=== PATIENT | male | born 1950 | race Caucasian/White ===

== ENCOUNTER 2021-05-05 11:22 | Inpatient (IN) | payer OTHER, MEDICARE ==
[~2021-05-05] VITALS: Ht 177.8 cm; Wt 96.8 kg
[~2021-05-05 11:22] MED LIST: METF10002 PO; PRAV40TA2 PO; RAMI2.5C49 PO; VALS1TAB12 PO; VERA240C2 PO; potassium PO
--- NOTE | 2021-05-05 11:25 | NUR ---
Report received from EMS and care assumed. 12 lead EKG being completed and pt placed on full bedside monitor. dumpling machine operator completed and pt placed in Covid isolation for s/s Covid x1 week with negative test last but increased symptoms. Pt states he has not been able to sleep due to SOB x4 days and body aches are reported as 10/10 discomfort with highest fever at home of 103F yesterday.
--- NOTE | 2021-05-05 11:35 | NUR ---
Urinal provided to pt for urgent needs and sample obtained for possible future orders after being seen by MD. Awaiting MD assessment.
--- NOTE | 2021-05-05 12:56 | NUR ---
Pt awaiting MD assessment. VSS.
[2021-05-05] MEDS ORDERED: MORPHINE SULFATE 4 MG/ML, 1ML IVPush PRN (13:00)
[2021-05-05] MEDS ORDERED: KETOROLAC 30 MG/1 ML IV ONE (13:00)
[2021-05-05] MEDS ORDERED: SODIUM CHLORIDE FLUSH 10ML SYR IVF ONE (13:00)
--- NOTE | 2021-05-05 13:00 | NUR ---
MD at bedside for exam. Med rec completed to best of pt's ability. Pills present and looked up ones he could not recall names of.
[2021-05-05] MEDS ORDERED: METF500T17 PO (13:07)
[2021-05-05] MEDS ORDERED: KETOROLAC 30 MG/1 ML ONE (13:12)
[2021-05-05] MEDS ORDERED: MORPHINE SULFATE 4 MG/ML, 1ML ONE (13:12)
--- NOTE | 2021-05-05 13:20 | NUR ---
IV attempts x4 unsuccessful. All sites covered with gauze dsgs and second RN called to bedside to attempt IV start
--- NOTE | 2021-05-05 13:42 | NUR ---
Pt medicated for pain and PCXR being completed at this time.
[2021-05-05 13:47] LABS: BASOPHILS % (AUTO) 0 % (0-1); EOSINOPHILS % (AUTO) 0 % (1-7); LYMPHOCYTES % (AUTO) 2 % (22-44); MEAN CORPUSCULAR HEMOGLOBIN 32.3 pg (27.5-34.5); MEAN CORPUSCULAR HGB CONC 34.5 g/dL (33.2-36.2); MEAN PLATELET VOLUME 10.1 fL (7.4-10.4); MONOCYTES % (AUTO) 3 % (2-9); NEUTROPHILS % (AUTO) 96 % (42-75); PLATELET COUNT 222 x10^3/uL (130-400); RED BLOOD COUNT 5.08 x10^6/uL (4.38-5.82); RED CELL DISTRIBUTION WIDTH 14.6 % (9.4-14.8)
[2021-05-05 13:56] LABS: ALANINE AMINOTRANSFERASE 70 U/L (12-78); ALBUMIN 2.1 g/dL (3.4-5.0); ANION GAP 11 mmol/L (5-15); CALCIUM 8.8 mg/dL (8.5-10.1); CHLORIDE 98 mmol/L (98-107); CREATININE 4.07 mg/dL (0.7-1.3)
[2021-05-05 14:04] LABS: ALKALINE PHOSPHATASE 86 U/L (45-117); BILIRUBIN,TOTAL 0.9 mg/dL (0.2-1.0); C-REACTIVE PROTEIN, QUANT > 19.00 mg/dL (0.02-0.49); TOTAL PROTEIN 7.3 g/dL (6.4-8.2); TROPONIN I < 0.015 ng/mL (0.000-0.045)
--- NOTE | 2021-05-05 14:17 | NUR ---
notified of Sepsis Protocol reached per Sepsis flowsheet with Creatinine and Lactic Acid both elevated with pneumon per CXR and elevated WBC's with elevated RR. SBP>100mmHg on all VS, but states she will be ordering 30mL/kg bolus now along with second set of BC and other orders. Pt notified.
[2021-05-05] MEDS ORDERED: ACETAMINOPHEN 500 MG TABLET ONE (14:21)
[2021-05-05] MEDS ORDERED: AZITHROMYCIN 500 MG in SODIUM CHLORIDE 0.9% 250 ML IV STA (14:27)
[2021-05-05] MEDS ORDERED: SODIUM CHLORIDE 0.9% 1,000ML IVBOLUS ONE (14:30)
[2021-05-05] MEDS ORDERED: CEFTRIAXONE 1,000 MG in DEXTROSE 5% 50 ML IVPB ONE (14:30)
[2021-05-05] MEDS ORDERED: ACETAMINOPHEN 500 MG TABLET PO ONE (14:30)
--- NOTE | 2021-05-05 14:35 | NUR ---
2500ML bolus running. Lab at bedside for second set of BC. APAP given with temp recheck 99.8F prior to admin. MD at bedside for pt update and covid swab of pt.
--- NOTE | 2021-05-05 14:40 | NUR ---
First of 2 abx IVPB started with second BC draw completed.
--- NOTE | 2021-05-05 14:47 | NUR ---
Urinal emptied of 300mL dark yellow uop.
--- NOTE | 2021-05-05 15:37 | NUR ---
Food tray not yet arrived. Second IVPB abx started at this time and second liter of 2500mL bolus started.
--- NOTE | 2021-05-05 16:11 | NUR ---
Dinner tray arrived and brought to pt room. ABX [facility] done with IVF running well for bolus. Admitting MD at bedside for exam. Med/Tele request placed and awaiting room assignment.
--- NOTE | 2021-05-05 16:43 | NUR ---
Pt states he ate only a small amount of food provided, but he feels better after having eaten something. Pt states pain is currently still resolved. Bag 2 of 3 nearly completed with VS as documented.
--- NOTE | 2021-05-05 16:46 | NUR ---
Bag 3 of 3 started at wide open rate for 500mL more of total 2500mL bolus as ordered. Pt aware of need for UA sample as soon as able.
--- NOTE | 2021-05-05 16:55 | NUR ---
Report given to [facility] for meal break and care transferred.
--- NOTE | 2021-05-05 17:25 | NUR ---
Report received and care reassumed. Pt found slumped down in bed with chin to chest and sleeping and noted sats 88% on 2L/min. Pt repositioned and O2 increased to 3L/min with reassessed sats at 93%.
--- NOTE | 2021-05-05 17:37 | NUR ---
Report called to [facility] and pt readied for tranfer to floor.
--- NOTE | 2021-05-05 17:39 | NUR ---
Griselda RN on floor, aware of sepsis protocol started and need for UA sample to be sent to lab.
--- NOTE | 2021-05-05 17:45 | NUR ---
Repeat VS assessed as per sepsis protocol after fluid bolus completion. Awaiting transport staff to take pt to floor.
[2021-05-05] MEDS ORDERED: hydrALAzine 20 MG/ML, 1ML IVPush PRN (18:30)
[2021-05-05] MEDS ORDERED: DEXTROSE 4 GM TAB.CHEW PO PRN (18:30)
[2021-05-05] MEDS ORDERED: DEXTROSE 50%, 50ML SYRINGE IVPush PRN (18:30)
[2021-05-05] MEDS ORDERED: POLYETHYLENE GLYCOL 17 GM PACKET PO PRN (18:30)
[2021-05-05] MEDS ORDERED: GLUCAGON 1 MG IM PRN (18:30)
[2021-05-05] MEDS ORDERED: ACETAMINOPHEN 325 MG TABLET PO PRN (18:30)
[2021-05-05] MEDS ORDERED: ONDANSETRON 2MG/ML, 2ML IVPush PRN (18:30)
[2021-05-05 18:43] VITALS: BP 109/66
[2021-05-05 19:25] LABS: MICROSCOPIC INDICATED
[2021-05-05] MEDS: HEPARIN 5,000 UNITS/ML, 1ML SQ SCH (20:55)
[2021-05-05] MEDS: SODIUM CHLORIDE 0.9% 1,000 ML IV SCH (20:56)
[2021-05-05] MEDS: SODIUM CHLORIDE FLUSH 10ML SYR IVF SCH (20:56)
[2021-05-05] MEDS: INSULIN LISPRO 100 UNITS/ML, PEN SQ-INSULIN SCH (20:57)
[2021-05-06 02:16] VITALS: BP 128/81
[2021-05-06] MEDS: HEPARIN 5,000 UNITS/ML, 1ML SQ SCH ×3 (05:11→20:47)
[2021-05-06 06:23] LABS: BASOPHILS % (AUTO) 0 % (0-1); EOSINOPHILS % (AUTO) 0 % (1-7); LYMPHOCYTES % (AUTO) 1 % (22-44); MEAN CORPUSCULAR HEMOGLOBIN 31.7 pg (27.5-34.5); MEAN PLATELET VOLUME 9.7 fL (7.4-10.4); MONOCYTES % (AUTO) 2 % (2-9); NEUTROPHILS % (AUTO) 96 % (42-75); PLATELET COUNT 205 x10^3/uL (130-400); RED BLOOD COUNT 4.79 x10^6/uL (4.38-5.82)
[2021-05-06 06:33] LABS: D-DIMER 3.21 ug/mlFEU (0.00-0.52); INTERNATIONAL NORMALIZED RATIO 1.12 (0.93-1.1); PROTHROMBIN TIME 11.9 Seconds (9.6-11.5)
[2021-05-06] MEDS: SODIUM CHLORIDE 0.9% 1,000 ML IV SCH ×2 (06:34→16:14)
[2021-05-06 08:22] VITALS: BP 128/78
[2021-05-06] MEDS: INSULIN LISPRO 100 UNITS/ML, PEN SQ-INSULIN SCH ×4 (08:23→20:52)
[2021-05-06] MEDS: SENNA/DOCUSATE TABLET PO SCH (09:28)
[2021-05-06] MEDS: OXYcodone/APAP 5/325MG TABLET PO PRN ×2 (09:35→20:50)
[2021-05-06] MEDS: SODIUM CHLORIDE FLUSH 10ML SYR IVF SCH ×2 (09:35→20:53)
[2021-05-06 09:52] LABS: ALANINE AMINOTRANSFERASE 55 U/L (12-78); ALBUMIN 1.7 g/dL (3.4-5.0); ANION GAP 11 mmol/L (5-15); CALCIUM 7.6 mg/dL (8.5-10.1); CHLORIDE 106 mmol/L (98-107); CREATININE 3.41 mg/dL (0.7-1.3)
[2021-05-06 09:54] LABS: ALKALINE PHOSPHATASE 77 U/L (45-117); BILIRUBIN,TOTAL 0.5 mg/dL (0.2-1.0); TOTAL PROTEIN 5.9 g/dL (6.4-8.2)
[2021-05-06] MEDS: CEFTRIAXONE 2 GM in DEXTROSE 5% 50 ML IVPB SCH (14:49)
[2021-05-06] MEDS: AZITHROMYCIN 500 MG in SODIUM CHLORIDE 0.9% 250 ML IV SCH (16:14)
[2021-05-06 16:23] VITALS: BP 135/60
[2021-05-06 19:25] VITALS: BP 118/66
[2021-05-06 23:06] VITALS: BP 116/70
[2021-05-07] MEDS: SODIUM CHLORIDE 0.9% 1,000 ML IV SCH (06:01)
[2021-05-07] MEDS: HEPARIN 5,000 UNITS/ML, 1ML SQ SCH ×3 (06:01→21:00)
[2021-05-07 06:30] LABS: CHLORIDE 107 mmol/L (98-107)
[2021-05-07 06:38] LABS: ANION GAP 8 mmol/L (5-15); CALCIUM 7.6 mg/dL (8.5-10.1)
[2021-05-07 06:44] LABS: MEAN CORPUSCULAR HEMOGLOBIN 31.8 pg (27.5-34.5); MEAN CORPUSCULAR HGB CONC 34.1 g/dL (33.2-36.2); MEAN PLATELET VOLUME 10.1 fL (7.4-10.4); PLATELET COUNT 203 x10^3/uL (130-400); RED BLOOD COUNT 4.31 x10^6/uL (4.38-5.82)
[2021-05-07 07:00] LABS: <RBC MORPHOLOGY> NORMAL; BAND#(MANUAL) 1.08 x10^3/uL; BANDS%(MANUAL) 12 % (0-7); LYMPH#(MANUAL) 0.18 x10^3/uL (1-3.4); LYMPHS% (MANUAL) 2 % (22-44); MONOS#(MANUAL) 0.63 x10^3/uL (0.3-2.7); MONOS% (MANUAL) 7 % (2-9); SEG#(MANUAL) 7.11 x10^3/uL (1.8-6.8); SEGS% (MANUAL) 79 % (42-75)
[2021-05-07 07:01] LABS: <PLATELET ESTIMATE> ADEQUATE; <PLT MORPHOLOGY> NORMAL PLT MORPH; TOXIC GRAN 1+
[2021-05-07 08:57] VITALS: BP 133/82
[2021-05-07] MEDS: INSULIN LISPRO 100 UNITS/ML, PEN SQ-INSULIN SCH ×4 (08:59→21:00)
[2021-05-07] MEDS: SENNA/DOCUSATE TABLET PO SCH (09:00)
[2021-05-07] MEDS: SODIUM CHLORIDE FLUSH 10ML SYR IVF SCH ×2 (09:00→21:00)
[2021-05-07] MEDS: OXYcodone/APAP 5/325MG TABLET PO PRN ×2 (12:25→21:07)
[2021-05-07 13:45] VITALS: BP 135/77
[2021-05-07] MEDS: CEFTRIAXONE 2 GM in DEXTROSE 5% 50 ML IVPB SCH (14:18)
[2021-05-07] MEDS: AZITHROMYCIN 500 MG in SODIUM CHLORIDE 0.9% 250 ML IV SCH (15:43)
[2021-05-07 20:00] VITALS: BP 122/74
[2021-05-08 02:00] VITALS: BP 117/68
[2021-05-08] MEDS: HEPARIN 5,000 UNITS/ML, 1ML SQ SCH ×2 (05:00→13:00)
[2021-05-08 06:06] LABS: ANION GAP 9 mmol/L (5-15); CALCIUM 8.2 mg/dL (8.5-10.1); CHLORIDE 112 mmol/L (98-107)
[2021-05-08 06:07] LABS: CREATININE 2.44 mg/dL (0.7-1.3)
[2021-05-08 06:09] LABS: MEAN CORPUSCULAR HEMOGLOBIN 31.6 pg (27.5-34.5); MEAN PLATELET VOLUME 10.2 fL (7.4-10.4); PLATELET COUNT 216 x10^3/uL (130-400); RED BLOOD COUNT 4.48 x10^6/uL (4.38-5.82); RED CELL DISTRIBUTION WIDTH 15.2 % (9.4-14.8)
[2021-05-08 06:40] LABS: ANISOCYTOSIS 1+; BAND#(MANUAL) 0.77 x10^3/uL; BANDS%(MANUAL) 9 % (0-7); EOS#(MANUAL) 0.34 x10^3/uL (0.0-0.4); EOS% (MANUAL) 4 % (1-7); LYMPH#(MANUAL) 0.26 x10^3/uL (1-3.4); LYMPHS% (MANUAL) 3 % (22-44); MONOS#(MANUAL) 0.34 x10^3/uL (0.3-2.7); MONOS% (MANUAL) 4 % (2-9); SEG#(MANUAL) 6.88 x10^3/uL (1.8-6.8); SEGS% (MANUAL) 80 % (42-75)
[2021-05-08 06:41] LABS: <PLATELET ESTIMATE> ADEQUATE; <PLT MORPHOLOGY> NORMAL PLT MORPH
[2021-05-08] MEDS: INSULIN LISPRO 100 UNITS/ML, PEN SQ-INSULIN SCH ×3 (07:00→16:00)
[2021-05-08] MEDS ORDERED: POTASSIUM CHLORIDE 20 MEQ TAB.ER.PRT PO ONE (07:00)
[2021-05-08] MEDS: SENNA/DOCUSATE TABLET PO SCH (07:44)
[2021-05-08] MEDS: SODIUM CHLORIDE FLUSH 10ML SYR IVF SCH (07:45)
[2021-05-08 10:14] VITALS: BP 160/89
[2021-05-08] MEDS ORDERED: INSU100I11 SQ-INSULIN (12:01)
[2021-05-08] MEDS ORDERED: OXYC1TAB14 PO (12:01)
[2021-05-08] MEDS: CEFTRIAXONE 2 GM in DEXTROSE 5% 50 ML IVPB SCH (15:54)
== END 2021-05-08 17:45 | disposition home health service (06) | DRG 871 ==
LOC: ED 15:04 → EDIP 15:29 → 4WST 18:15
PROVIDERS: ADMIT Internal Medicine; ATTEND Internal Medicine
DX: A41.9 Sepsis, unspecified organism (principal); J96.01 Acute respiratory failure with hypoxia; J15.9 Unspecified bacterial pneumonia; N17.9 Acute kidney failure, unspecified; E87.1 Hypo-osmolality and hyponatremia; Z20.822 Contact with and (suspected) exposure to COVID-19; R65.20 Severe sepsis without septic shock; E78.5 Hyperlipidemia, unspecified; E86.1 Hypovolemia; N18.9 Chronic kidney disease, unspecified; E11.22 Type 2 diabetes mellitus with diabetic chronic kidney disease; I12.9 Hypertensive chronic kidney disease with stage 1 through stage 4 chronic kidney disease, or unspecified chronic kidney disease; Z88.1 Allergy status to other antibiotic agents; Z82.5 Family history of asthma and other chronic lower respiratory diseases; Z82.49 Family history of ischemic heart disease and other diseases of the circulatory system; Z80.8 Family history of malignant neoplasm of other organs or systems; Z79.899 Other long term (current) drug therapy
CPT/HCPCS: 36415; 71045; 76770; 80048; 80053; 81001; 82570; 82728; 82962; 83605; 83615; 84100; 84145; 84153; 84156; 84439; 84443; 84484; 85025; 85379; 85610; 86140; 87040; 87077; 87086; 93005; 96360; G0378; J0456; J0696; J1644; J1885; U0005; G0103; J1815; J2270; J7030; J7050; U0003